=== PATIENT | male | born 1980 | race Asian ===

== ENCOUNTER 2016-11-10 16:47 | Emergency (ER) | payer OTHER ==
--- NOTE | 2016-11-10 19:26 | ED ---
Throat Pain/Nasal Congestion - HPI Summary HPI Summary: Patient presents with 1x year of "something in my throat." He states it just happened spontaneously about 1 year ago, and he feels it has been getting worse. No trauma or swallow of foreign body or known item stuck in the throat. Symptoms worse at night and often wakes up gasping for air. Beck pain. Denies difficultly swallowing solids or liquids. He denies burning sensation, GERD symptoms or feelings of gastroparesis. Normal BM's. Good PO intake. Denies excess gas or N.V.C.D. Otherwise healthy. Denies excess fatigue in the mornings or during the day. He feels he gets enough sleep. Denies cough, SOB, muffled voice, immunizations UTD. - History of Current Complaint Chief Complaint: EDForeignBodyEsophag Time Seen by Provider: 11/10/16 17:33 Hx Obtained From: Patient Onset/Duration: Sudden Onset Severity: Moderate Associated Signs And Symptoms: Positive: FB Sensation - Epiglottits Risk Factors Epiglottis Risk Factors: Negative - Allergies/Home Medications Allergies/Adverse Reactions: Allergies Allergy/AdvReac Type Severity Reaction Status Date / Time No Known Allergies Allergy Verified 10/24/14 17:11 PMH/Surg Hx/FS Hx/Imm Hx Previously Healthy: Yes Endocrine/Hematology History: Denies: Hx Diabetes Cardiovascular History: Denies: Hx Congestive Heart Failure - Immunization History Hx Pertussis Vaccination: No Immunizations Up to Date: Unable to Obtain/Confirm Infectious Disease History: No Infectious Disease History: Denies: Traveled Outside the [place] in Last 30 Days - Social History Occupation: Employed Full-time Lives: Alone Alcohol Use: None Hx Substance Use: No Substance Use Type: Reports: None Hx Tobacco Use: No Smoking Status (MU): Never Smoked Tobacco Review of Systems Constitutional: Negative Eyes: Negative Positive: Other - foreign body sensation in the throat x 1 year Cardiovascular: Negative Respiratory: Negative Musculoskeletal: Negative Skin: Negative Neurological: Negative All Other Systems Reviewed And Are Negative: Yes Physical Exam Triage Information Reviewed: Yes Vital Signs On Initial Exam: Initial Vitals Temp Pulse Resp BP Pulse Ox 97.9 F 90 16 142/91 98 11/10/16 16:58 11/10/16 16:58 11/10/16 16:58 11/10/16 16:58 11/10/16 16:58 Vital Signs Reviewed: Yes Appearance: Positive: Well-Appearing, Well-Nourished Skin: Positive: Warm, Skin Color Reflects Adequate Perfusion ENT: Positive: Pharynx normal, TMs normal Neck: Positive: Supple, Nontender, No Lymphadenopathy Respiratory/Lung Sounds: Positive: Clear to Auscultation, Breath Sounds Present Cardiovascular: Positive: Normal, RRR, Pulses are Symmetrical in both Upper and Lower Extremities Musculoskeletal: Positive: Strength/ROM Intact Neurological: Positive: Normal, Sensory/Motor Intact, Alert, Oriented to Person Place, Time, Speech Normal Psychiatric: Positive: Normal AVPU Assessment: Alert Diagnostics - Vital Signs Vital Signs Temp Pulse Resp BP Pulse Ox 11/10/16 17:07 97.9 F 90 16 142/91 98 11/10/16 16:58 97.9 F 90 16 142/91 98 - Laboratory Lab Statement: Any lab studies that have been ordered have been reviewed, and results considered in the medical decision making process. EENT Course/Dx - Course Course Of Treatment: Patient presents with foreign body sensation in throat x 1 year. No difficulty breathing, GERD symptoms, difficulty swallowing solids or liquids. Denies trauma, surgeries. Provider educated patient about sleep apnea and symptoms involved as well as Esophageal problems which will need to be further evaluated by ENT. Follow up given. Pharynx wihtou erythema. Patent. Patient OK for discharge and will follow up as instructed. - Differential Diagnoses Differential Diagnoses: Epiglottitis, Foreign Body, Rodrigo's Angina, Pain of Unknown Etiology - Diagnoses Provider Diagnoses: Sensation of foreign body in esophagus Discharge - Discharge Plan Condition: Stable Disposition: HOME Referrals: Miguel Castillo MD [Medical Doctor] - No Primary Care Phys,NOPCP [Primary Care Provider] - Juni Zepeda MD [Medical Doctor] - Additional Instructions: Follow up with ENT Call tomorrow for appt. If symptoms become worse or you feel you cannot breathe, return to the ED.
[2016-11-10 19:28] VITALS: BP 127/77
== END 2016-11-10 19:28 | disposition home or self-care (01) ==
LOC: ED 16:47
DX: S10.15XA Superficial foreign body of throat, initial encounter (principal); X58.XXXA Exposure to other specified factors, initial encounter; Y93.9 Activity, unspecified; Y92.9 Unspecified place or not applicable
CPT/HCPCS: 99282